=== PATIENT | male | born 1975 | race Caucasian/White ===

== ENCOUNTER 2018-12-16 01:24 | Emergency (ER) | payer MEDICARE, OTHER ==
[~2018-12-16] VITALS: Ht 185.4 cm; Wt 125.7 kg
[~2018-12-16 01:24] MED LIST: ACET325T14 PO; ALBI30PE3 SQ; AMLO2.5T5 PO; ASPI-650 PO; ASPI325T17 PO; ASPI325T80 PO; AZIT500T PO; BISA10SU2 PR; BUDE10.2 INH; CEFT1FRO2 IV; CEFT2VIA53 IV; CELE200C PO; DOCU-131 PO; FURO-92 PO; GABA300C PO; HYDR-3240 PO; HYDR-3241 PO; HYDR-3245 PO; HYDR-3307 PO; INSU100I18 SQ-INSULIN; INSU100I28 SQ; INSU100I28 SQ-INSULIN; MAGN30OR PO; METO10TA2 PO; MORP-52 PO; OXYC5CAP2 PO; OXYC5SOL8 PO; PANT40TA3 PO; POLY17PO5 PO; POTA10TA12 PO; POTA8TAB PO; SENN-177 PO; SULF1TAB24 PO; TEMA15CA6 PO
[2018-12-16] MEDS ORDERED: LISI-167 PO (01:49)
[2018-12-16] MEDS ORDERED: SYMBICORT (01:49)
[2018-12-16] MEDS ORDERED: ATOR20TA PO (01:49)
[2018-12-16] MEDS ORDERED: METF500T17 PO (01:49)
[2018-12-16] MEDS ORDERED: ALBUTEROL MDI (01:49)
[2018-12-16] MEDS ORDERED: ASPI-515 PO (01:49)
[2018-12-16] MEDS ORDERED: EMPA10TA PO (01:49)
[2018-12-16] MEDS ORDERED: ALBUTEROL/IPRATROPIUM 2.5MG/0.5MG, 3 ML ONE (01:54)
[2018-12-16] MEDS ORDERED: ALBUTEROL/IPRATROPIUM 2.5MG/0.5MG, 3 ML NPPB PRN (02:00)
[2018-12-16] MEDS ORDERED: ALBUTEROL/IPRATROPIUM 2.5MG/0.5MG, 3 ML NPPB ONE (02:00)
--- NOTE | 2018-12-16 02:06 | NUR ---
PT MEDICATED PER EMAR. 5 RIGHTS ADDRESSED. PT ATTACHED TO ALL MONITORING EQUIPMENT. VITALS STABLE. FAMILY MEMBER AT BEDSIDE. WILL CONTINUE TO MONITOR.
[2018-12-16 02:11] VITALS: BP 121/60
--- NOTE | 2018-12-16 02:43 | NUR ---
Patient/Caregiver given discharge instructions and they have confirmed that they understand the instructions. Patient ambulatory with steady gait.
== END 2018-12-16 02:57 | disposition home or self-care (01) ==
LOC: ED 02:53
DX: J20.9 Acute bronchitis, unspecified (principal)
CPT/HCPCS: 71046; 94640; 99283; J7512; J7620